=== PATIENT | male | born 1985 | race Hispanic/Latino ===

== ENCOUNTER 2019-07-20 06:29 | Emergency (ER) | payer OTHER ==
[2019-07-20 07:06] LABS: #Basophils 0.1 thou/uL (0.0-0.2); #Eosinphils 0.1 thou/uL (0.0-0.7); #Lymphocytes 2.2 thou/uL (1.20-3.40); #Monocytes 0.5 thou/uL (0.11-0.59); %Basophils 1.1 % (0.0-1.0); %Eosinophils 1.5 % (0.0-10.0); %Lymphocytes 24.4 % (21.0-51.0); %Monocytes 5.6 % (0.0-10.0); %Neutrophils 67.4 % (42.0-75.0); Hemoglobin 13.2 g/dL (14.0-18.0); Mean Corpuscular HGB CONC 33.7 g/dL (32.0-36.0); Mean Corpuscular Hemoglobin 29.4 pg (27.0-31.0); Mean Corpuscular Volume 87.2 fL (78.0-98.0); Mean Platelet Volume 9.4 fL (7.4-10.4); Platelet Count 226 thou/uL (130-400); RBC Distribution Width 12.3 % (11.5-14.5); Red Blood Cell (RBC) Count 4.48 mill/uL (4.70-6.10); White Blood Cell (WBC) Count 8.9 thou/uL (4.8-10.8)
[2019-07-20 07:24] LABS: ALT (SGPT) 41 U/L (8-55); AST (SGOT) 28 U/L (5-34); Albumin 4.2 g/dL (3.5-5.0); Alkaline Phosphatase 109 U/L (40-110); Anion Gap 13 mmol/L (10-20); BUN (Urea Nitrogen) 10 mg/dL (8.9-20.6); Bilirubin, Total 0.6 mg/dL (0.2-1.2); Calc. Creatinine Clearance 0 mL/min (70-130); Calcium 8.9 mg/dL (7.8-10.44); Carbon Dioxide 22 mmol/L (22-29); Chloride 106 mmol/L (98-107); Estimated GFR-MDRD Greater than 90; Globulin 3.4 g/dL (2.4-3.5); Glucose 125 mg/dL (70-105); Lipase 16 U/L (8-78); Potassium 3.8 mmol/L (3.5-5.1); Protein, Total 7.6 g/dL (6.0-8.3); Sodium 137 mmol/L (136-145)
[2019-07-20] MEDS ORDERED: Morphine 4 MG/ML VIAL ONE (07:34)
[2019-07-20] MEDS ORDERED: Ondansetron PF 4 MG/2 ML Vial ONE (07:34)
[2019-07-20 07:46] LABS: Bilirubin Negative (Negative); Blood, Urine Negative (Negative); Clarity Clear (Clear); Glucose, Urine (Dipstick) Normal (Negative); Leukocyte Negative Leu/uL (Negative); Nitrite Negative (Negative); Protein, Urine (Dipstick) 10 mg/dL (Neg-Trace); Urobilinogen Normal mg/dL (Less than 2)
--- NOTE | 2019-07-20 08:26 | CT ---
CT ABDOMEN AND PELVIS WITH IV CONTRAST: Date: 07/20/19 HISTORY: Intermittent left lower quadrant pain with rectal bleeding and hematochezia. FINDINGS: There is a 2.0 cm solid nodule in the right middle lobe. There is fatty infiltration of the liver. Th e spleen, pancreas, adrenal glands, and kidneys are normal. No calcified gallstones are seen. No free air, free fluid, or lymphadenopathy noted in the abdomen or pelvis. The small bowel loops are not ab normally dilated. A normal appearing appendix is seen. No pericolonic inflammatory changes are noted. No acute osseous abnormalities are seen. A small, fat-containing umbilical hernia is present. IMPRESSION: 1. Indeterminate 2.0 cm right middle lobe lung nodule. This should be evaluated with a PET scan. 2. Fatty liver. 3. No evidence of an acute process. POS: [facility]
[2019-07-20] MEDS ORDERED: ISOVUE-370 76%-LOCM 1 ML ONE (11:46)
== END 2019-07-20 09:00 | disposition home or self-care (01) ==
LOC: ERS 06:29
DX: R91.8 Other nonspecific abnormal finding of lung field (principal); R10.32 Left lower quadrant pain
CPT/HCPCS: 74177; 80053; 81003; 83690; 85025; 96361; 96374; 96375; J2270; J2405; Q9966

== ENCOUNTER 2019-10-31 13:14 | Outpatient (CLI) | payer OTHER ==
--- NOTE | 2019-10-31 13:37 | RAD ---
XR Chest Pa Lat @ [facility] HISTORY: Dyspnea COMPARISON: None FINDINGS: The heart size is normal. The lungs are well expanded without focal areas of consolidation, pneumothorax or pleural effusions. IMPRESSION: No radiographic evidence of acute cardiopulmonary process.
== END 2019-10-31 13:15 | disposition home or self-care (01) ==
LOC: RAD 13:14
PROVIDERS: ATTEND Internal Medicine Critical Care Medicine
DX: R06.00 Dyspnea, unspecified (principal)
CPT/HCPCS: 71046